=== PATIENT | female | born 1955 | race Caucasian/White ===

== ENCOUNTER 2016-07-16 09:58 | Observation (INO) | payer OTHER ==
[~2016-07-16] VITALS: Ht 165.1 cm; Wt 75.0 kg
[2016-07-16] VITALS (8 sets, daily range): BP systolic 102–127; BP diastolic 58–77; PULSE 68–86; RESP 16–24; TEMP 97.8–98.8; O2SAT 97–100
[~2016-07-16 09:58] MED LIST: LORTA5 PO
[2016-07-16] MEDS ORDERED: SODIUM CHLOR 0.9% 1000 ML INJ 1,000 ML IV SCH (10:17)
[2016-07-16] MEDS ORDERED: SODIUM CHLORIDE 0.9% FLUSH 10 ML FLUSH IV FLUSH PRN ×2 (10:30→17:45)
[2016-07-16 10:47] LABS: AUTOMATED NEUTROPHIL # 7.4 TH/MM3 (1.8-7.7); BASOPHIL # 0.1 TH/MM3 (0-0.2); BASOPHIL % 0.7 % (0.0-2.0); EOSINOPHIL % 0.4 % (0.0-4.0); HEMATOCRIT 43.3 % (35.0-46.0); HEMO FLAGS DIFF FINAL; LYMPH % 19.8 % (9.0-44.0); MEAN CELL VOLUME 87.4 FL (80.0-100.0); MEAN CORPUSCULAR HEMOGLOBIN 29.7 PG (27.0-34.0); MONO % 4.5 % (0.0-8.0); NEUT % 74.6 % (16.0-70.0); PLATELET COUNT 213 TH/MM3 (150-450); RED BLOOD COUNT 4.95 MIL/MM3 (4.00-5.30); RED CELL DISTRIBUTION WIDTH 13.1 % (11.6-17.2); WHITE BLOOD COUNT 9.9 TH/MM3 (4.0-11.0)
[2016-07-16 10:56] LABS: PROTHROMBIN TIME - PATIENT 11.6 SEC (9.8-11.6)
[2016-07-16 11:06] LABS: ANION GAP 6 MEQ/L (5-15); AST (GOT) 16 U/L (15-37); BICARBONATE 28.8 MEQ/L (21.0-32.0); BLOOD UREA NITROGEN 17 MG/DL (7-18); CHLORIDE 106 MEQ/L (98-107); GLOMERULAR FILTRATION RATE 62 ML/MIN (>89); POTASSIUM 4.5 MEQ/L (3.5-5.1); SODIUM (NA) 141 MEQ/L (136-145)
[2016-07-16 11:10] LABS: ALKALINE PHOSPHATASE 74 U/L (45-117); ALT (GPT) 25 U/L (10-53); TOTAL BILIRUBIN ADULT 0.5 MG/DL (0.2-1.0)
[2016-07-16] MEDS ORDERED: LORazepam 2 MG/ML VIAL IV PUSH ONE (11:15)
[2016-07-16] MEDS ORDERED: SODIUM CHLOR 0.9% 1000 ML INJ 1,000 ML IV ONE (11:15)
[2016-07-16] MEDS ORDERED: MECLIZINE HCL 25 MG TAB PO ONE (11:15)
[2016-07-16] MEDS ORDERED: ONDANSETRON HCL 4 MG/2 ML VIAL IV PUSH ONE (12:15)
--- NOTE | 2016-07-16 12:30 | RADRPT ---
EXAM DATE/TIME: 07/16/2016 12:02 [facility] COMPARISON: No previous studies available for comparison. INDICATIONS : Dizziness, nausea and vomiting. RADIATION DOSE: 56.77 CTDIvol (mGy) MEDICAL HISTORY : Cervical cancer. SURGICAL HISTORY : Tonsillectomy. ENCOUNTER: Initial ACUITY: 1 day PAIN SCALE: 0/10 LOCATION: cranial TECHNIQUE: Multiple contiguous axial images were obtained of the head. Using automated exposure control and adj ustment of the mA and/or kV according to patient size, radiation dose was kept as low as reasonably a chievable to obtain optimal diagnostic quality images. FINDINGS: CEREBRUM: The ventricles are normal for age. No evidence of midline shift, mass lesion, hemorrhage or acute in farction. No extra-axial fluid collections are seen. POSTERIOR FOSSA: The cerebellum and brainstem are intact. The 4th ventricle is midline. The cerebellopontine angle i s unremarkable. EXTRACRANIAL: The visualized portion of the orbits is intact. SKULL: The calvaria is intact. No evidence of skull fracture. CONCLUSION: Negative noncontrast head CT. Rolo Wells MD on July 16, 2016 at 12:28 Board Certified Radiologist. This report was verified electronically.
--- NOTE | 2016-07-16 14:05 | PD ---
HPI Chief Complaint: GI Complaint Time Seen by Provider: 10:58 Travel History International Travel<30 days: No Contact w/Intl Traveler<30days: No Traveled to known affect area: No History of Present Illness HPI Patient is a 60-year-old female with history of vertigo, presents to emergency room with complaints of dizziness. Reports that she has been having intermittent dizziness for the past few days, reports that she was able to ignore her symptoms. Patient reports that today, her dizziness got so severe, she is unable to ambulate, reports that she feels as if everything around her is spinning, reports that she cannot walk a straight line because of this dizziness. Patient reports that she feels sick her stomach, reports multiple episodes of nausea vomiting symptoms. Patient with no abdominal pain, no fevers or chills. Patient with no trauma to the head or neck. PFSH Past Medical History Cancer: Yes (CERVICAL. 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) Diminished Hearing: No Medical other: Yes (vertigo) Tetanus Vaccination: > 5 Years Influenza Vaccination: No Menopausal: Yes Past Surgical History Oral Surgery: Yes Tonsillectomy: Yes Other Surgery: Yes Social History Alcohol Use: No Tobacco Use: No Substance Use: No Allergies-Medications (Allergen,Severity, Reaction): Coded Allergies: Percodan (Verified Adverse Reaction, Mild, NAUSEA, TIRED, 07/16/16) Reported Meds & Prescriptions Reported Meds & Active Scripts Active No Active Prescriptions or Reported Medications Review of Systems General / Constitutional: No: Fever Eyes: No: Visual changes HENT: No: Headaches Cardiovascular: No: Chest Pain or Discomfort Respiratory: No: Shortness of Breath Gastrointestinal: No: Abdominal Pain Genitourinary: No: Dysuria Musculoskeletal: No: Pain Skin: No Rash Neurologic: Positive: Dizziness, Ataxia, No: Weakness Psychiatric: No: Depression Endocrine: No: Polydipsia Hematologic/Lymphatic: No: Easy Bruising Physical Exam Narrative GENERAL: Moderate distress SKIN: Focused skin assessment warm/dry. HEAD: Atraumatic. Normocephalic. EYES: Pupils equal and round. No scleral icterus. No injection or drainage. Patient with left-sided horizontal nystagmus ENT: No nasal bleeding or discharge. Mucous membranes pink and moist. NECK: Trachea midline. No JVD. CARDIOVASCULAR: Regular rate and rhythm. No murmur appreciated. RESPIRATORY: No accessory muscle use. Clear to auscultation. Breath sounds equal bilaterally. GASTROINTESTINAL: Abdomen soft, non-tender, nondistended. Hepatic and splenic margins not palpable. MUSCULOSKELETAL: No obvious deformities. No clubbing. No cyanosis. No edema. NEUROLOGICAL: Awake and alert. No obvious cranial nerve deficits. Motor grossly within normal limits. Normal speech. Patient with ataxic gait, and he was walking a straight line PSYCHIATRIC: Appropriate mood and affect; insight and judgment normal. Data Data Last Documented VS Vital Signs Date Time Temp Pulse Resp B/P Pulse Ox O2 Delivery O2 Flow Rate FiO2 07/16/16 12:00 98.0 86 18 114/67 99 Room Air Orders Complete Blood Count With Diff (07/16/16 10:17) Comprehensive Metabolic Panel (07/16/16 10:17) Lipase (07/16/16 10:17) Prothrombin Time / Inr (Pt) (07/16/16 10:17) Act Partial Throm Time (Ptt) (07/16/16 10:17) Urinalysis - C+S If Indicated (07/16/16 10:17) Iv Access Insert/Monitor (07/16/16 10:17) Ecg Monitoring (07/16/16 10:17) Oximetry (07/16/16 10:17) NPO (07/16/16 10:17) Sodium Chlor 0.9% 1000 Ml Inj (Ns 1000 M (07/16/16 10:17) Sodium Chloride 0.9% Flush (Ns Flush) (07/16/16 10:30) Electrocardiogram (07/16/16 10:17) Lorazepam Inj (Ativan Inj) (07/16/16 11:15) Meclizine (Antivert) (07/16/16 11:15) Sodium Chlor 0.9% 1000 Ml Inj (Ns 1000 M (07/16/16 11:15) Ct Brain W/O Iv Contrast(Rout) (07/16/16 ) Ondansetron Inj (Zofran Inj) (07/16/16 12:15) Mri Brain W/O Contrast (07/16/16 ) Labs Laboratory Tests Test 07/16/16 07/16/16 10:05 10:20 Sodium Level 141 MEQ/L Potassium Level 4.5 MEQ/L Chloride Level 106 MEQ/L Carbon Dioxide Level 28.8 MEQ/L Anion Gap 6 MEQ/L Blood Urea Nitrogen 17 MG/DL Creatinine 0.92 MG/DL Estimat Glomerular Filtration 62 ML/MIN Rate Random Glucose 104 MG/DL Calcium Level 9.0 MG/DL Total Bilirubin 0.5 MG/DL Aspartate Amino Transf 16 U/L (AST/SGOT) Alanine Aminotransferase 25 U/L (ALT/SGPT) Alkaline Phosphatase 74 U/L Total Protein 7.5 GM/DL Albumin 3.9 GM/DL Lipase 110 U/L White Blood Count 9.9 TH/MM3 Red Blood Count 4.95 MIL/MM3 Hemoglobin 14.7 GM/DL Hematocrit 43.3 % Mean Corpuscular Volume 87.4 FL Mean Corpuscular Hemoglobin 29.7 PG Mean Corpuscular Hemoglobin 34.0 % Concent Red Cell Distribution Width 13.1 % Platelet Count 213 TH/MM3 Mean Platelet Volume 8.0 FL Neutrophils (%) (Auto) 74.6 % Lymphocytes (%) (Auto) 19.8 % Monocytes (%) (Auto) 4.5 % Eosinophils (%) (Auto) 0.4 % Basophils (%) (Auto) 0.7 % Neutrophils # (Auto) 7.4 TH/MM3 Lymphocytes # (Auto) 2.0 TH/MM3 Monocytes # (Auto) 0.4 TH/MM3 Eosinophils # (Auto) 0.0 TH/MM3 Basophils # (Auto) 0.1 TH/MM3 CBC Comment DIFF FINAL Differential Comment Prothrombin Time 11.6 SEC Prothromb Time International 1.0 RATIO Ratio Activated Partial 26.0 SEC Thromboplast Time MDM Medical Decision Making Medical Screen Exam Complete: Yes Emergency Medical Condition: Yes Interpretation(s) EKG at 1035: Normal sinus rhythm at 71 bpm, QT/QTc 385/407, no acute ST or T- wave changes Vital Signs Date Time Temp Pulse Resp B/P Pulse Ox O2 Delivery O2 Flow Rate FiO2 07/16/16 12:00 98.0 86 18 114/67 99 Room Air 07/16/16 10:18 18 98 Room Air 07/16/16 10:17 16 07/16/16 10:00 86 24 127/77 99 Room Air Laboratory Tests Test 07/16/16 07/16/16 10:05 10:20 Sodium Level 141 MEQ/L (136-145) Potassium Level 4.5 MEQ/L (3.5-5.1) Chloride Level 106 MEQ/L (98-107) Carbon Dioxide Level 28.8 MEQ/L (21.0-32.0) Anion Gap 6 MEQ/L (5-15) Blood Urea Nitrogen 17 MG/DL (7-18) Creatinine 0.92 MG/DL (0.50-1.00) Estimat Glomerular Filtration 62 ML/MIN (>89) Rate Random Glucose 104 MG/DL (74-106) Calcium Level 9.0 MG/DL (8.5-10.1) Total Bilirubin 0.5 MG/DL (0.2-1.0) Aspartate Amino Transf 16 U/L (15-37) (AST/SGOT) Alanine Aminotransferase 25 U/L (10-53) (ALT/SGPT) Alkaline Phosphatase 74 U/L (45-117) Total Protein 7.5 GM/DL (6.4-8.2) Albumin 3.9 GM/DL (3.4-5.0) Lipase 110 U/L (73-393) White Blood Count 9.9 TH/MM3 (4.0-11.0) Red Blood Count 4.95 MIL/MM3 (4.00-5.30) Hemoglobin 14.7 GM/DL (11.6-15.3) Hematocrit 43.3 % (35.0-46.0) Mean Corpuscular Volume 87.4 FL (80.0-100.0) Mean Corpuscular Hemoglobin 29.7 PG (27.0-34.0) Mean Corpuscular Hemoglobin 34.0 % Concent (32.0-36.0) Red Cell Distribution Width 13.1 % (11.6-17.2) Platelet Count 213 TH/MM3 (150-450) Mean Platelet Volume 8.0 FL (7.0-11.0) Neutrophils (%) (Auto) 74.6 % (16.0-70.0) Lymphocytes (%) (Auto) 19.8 % (9.0-44.0) Monocytes (%) (Auto) 4.5 % (0.0-8.0) Eosinophils (%) (Auto) 0.4 % (0.0-4.0) Basophils (%) (Auto) 0.7 % (0.0-2.0) Neutrophils # (Auto) 7.4 TH/MM3 (1.8-7.7) Lymphocytes # (Auto) 2.0 TH/MM3 (1.0-4.8) Monocytes # (Auto) 0.4 TH/MM3 (0-0.9) Eosinophils # (Auto) 0.0 TH/MM3 (0-0.4) Basophils # (Auto) 0.1 TH/MM3 (0-0.2) CBC Comment DIFF FINAL Differential Comment Prothrombin Time 11.6 SEC (9.8-11.6) Prothromb Time International 1.0 RATIO Ratio Activated Partial 26.0 SEC Thromboplast Time (24.3-30.1) Last Impressions Head CT 07/16/16 0000 Signed Impressions: Service Date/Time: Saturday, July 16, 2016 12:02 - CONCLUSION: Negative noncontrast head CT. Rolo Wells MD Differential Diagnosis Vertigo, vertebrobasilar insufficiency, electrolyte abnormality Narrative Course Patient is a 60-year-old female who presents to emergency room with complaints of dizziness. Reports that she has been having intermittent dizziness for the past few days, reports that symptoms are worse today. Patient reports that she feels ataxic, patient unable to ambulate. Labs as well as CT of the head ordered. Patient was given IV fluids, antiemetics, antinausea medications, Antivert and Ativan for symptoms. Patient with no relief of symptoms after all these medications are administered. Patient was observed in the emergency room for 3 hours, I personally tried to ambulate patient, patient unable to ambulate in the emergency room at this time. Patient with unsteady gait, ataxic. MRI of the head brain ordered to rule out VBI. Plan to admit patient to the hospital as she is ataxic and continues to be symptomatic despite aggressive medical treatment CBC & BMP Diagram 07/16/16 10:05 07/16/16 10:[address] 07/16/16 0000 Signed Impressions: Service Date/Time: Saturday, July 16, 2016 12:02 - CONCLUSION: Negative noncontrast head CT. Rolo Wells MD Case reviewed with Dr. Barfield who accepts pt to service Diagnosis Primary Impression: Dizziness Additional Impression: Ataxia Admitting Information Admitting Physician Requests: Observation Scripts No Active Prescriptions or Reported Meds Mikki Carranza DO July 16, 2016 14:05
[2016-07-16] MEDS ORDERED: ONDANSETRON HCL 4 MG/2 ML VIAL IV PUSH PRN (15:15)
[2016-07-16] MEDS ORDERED: LORazepam 2 MG/ML VIAL IV PUSH PRN (15:15)
[2016-07-16] MEDS: SODIUM CHLOR 0.9% 1000 ML INJ 1,000 ML IV SCH (15:23)
--- NOTE | 2016-07-16 16:13 | HHI.PR ---
Objective Objective Results - Vital Signs Date Time Temp Pulse Resp B/P Pulse Ox O2 Delivery O2 Flow Rate FiO2 07/16/16 15:23 78 16 102/64 99 Room Air 07/16/16 14:00 98.0 83 16 112/66 99 Room Air 07/16/16 12:00 98.0 86 18 114/67 99 Room Air 07/16/16 10:18 18 98 Room Air 07/16/16 10:17 16 07/16/16 10:00 86 24 127/77 99 Room Air Result Diagram: 07/16/16 1020 07/16/16 1005 Other Results Laboratory Tests Test 07/16/16 07/16/16 10:05 10:20 Sodium Level 141 Potassium Level 4.5 Chloride Level 106 Carbon Dioxide Level 28.8 Anion Gap 6 Blood Urea Nitrogen 17 Creatinine 0.92 Estimat Glomerular Filtration 62 Rate Random Glucose 104 Calcium Level 9.0 Total Bilirubin 0.5 Aspartate Amino Transf 16 (AST/SGOT) Alanine Aminotransferase 25 (ALT/SGPT) Alkaline Phosphatase 74 Total Protein 7.5 Albumin 3.9 Lipase 110 White Blood Count 9.9 Red Blood Count 4.95 Hemoglobin 14.7 Hematocrit 43.3 Mean Corpuscular Volume 87.4 Mean Corpuscular Hemoglobin 29.7 Mean Corpuscular Hemoglobin 34.0 Concent Red Cell Distribution Width 13.1 Platelet Count 213 Mean Platelet Volume 8.0 Neutrophils (%) (Auto) 74.6 Lymphocytes (%) (Auto) 19.8 Monocytes (%) (Auto) 4.5 Eosinophils (%) (Auto) 0.4 Basophils (%) (Auto) 0.7 Neutrophils # (Auto) 7.4 Lymphocytes # (Auto) 2.0 Monocytes # (Auto) 0.4 Eosinophils # (Auto) 0.0 Basophils # (Auto) 0.1 CBC Comment DIFF FINAL Differential Comment Prothrombin Time 11.6 Prothromb Time International 1.0 Ratio Activated Partial 26.0 Thromboplast Time Physical Exam Physical Exam pt is seen & examined d/w PT d/w Lakia see orders see H&P will f/u Delaney Hendricks MD July 16, 2016 16:13
--- NOTE | 2016-07-16 16:20 | RADRPT ---
EXAM DATE/TIME: 07/16/2016 15:35 [facility] COMPARISON: No previous studies available for comparison. INDICATIONS : Vertigo. Unsteady gait. MEDICAL HISTORY : Hypercholesterolemia. SURGICAL HISTORY : Breast biopsy. Appendectomy. ENCOUNTER: Initial ACUITY: 1 day PAIN SCORE: 0/10 LOCATION: cranial TECHNIQUE: Multiplanar, multisequence MRI of the brain was performed without contrast. FINDINGS: CEREBRUM: The ventricles are normal for age. No evidence of midline shift, mass lesion, hemorrhage or acute in farction. No extraaxial fluid collections are seen. The pituitary gland and suprasellar cistern are normal in configuration. WHITE MATTER: No significant signal abnormalities are seen in the white matter. POSTERIOR FOSSA: The cerebellum and brainstem are intact. The 4th ventricle is midline. The cerebellopontine angle is unremarkable. The cerebellar tonsils are normal in position. DIFFUSION IMAGING: No focal areas of restricted diffusion are seen. No evidence of acute infarction. EXTRACRANIAL: The visualized portions of the orbits and paranasal sinuses are unremarkable. CONCLUSION: Normal examination for a patient of this age. Tim Gamez MD on July 16, 2016 at 16:15 Board Certified Radiologist. This report was verified electronically.
--- NOTE | 2016-07-16 16:22 | HHI.PR ---
Objective Objective Results - Vital Signs Date Time Temp Pulse Resp B/P Pulse Ox O2 Delivery O2 Flow Rate FiO2 07/16/16 15:23 78 16 102/64 99 Room Air 07/16/16 14:00 98.0 83 16 112/66 99 Room Air 07/16/16 12:00 98.0 86 18 114/67 99 Room Air 07/16/16 10:18 18 98 Room Air 07/16/16 10:17 16 07/16/16 10:00 86 24 127/77 99 Room Air Result Diagram: 07/16/16 1020 07/16/16 1005 Physical Exam Physical Exam PHYSICAL EXAMINATION GENERAL: This is a well-developed, well-nourished female who appears to be in no acute distress. She is alert and awake, []. HEAD: Normocephalic without any lesion or mass noted. Facial features appear symmetric. OROPHARYNGEAL: Oropharynx without erythema or edema. NECK: Supple. No nuchal rigidity or lymphadenopathy. Trachea midline without deviation. CARDIAC: Regular rhythm, regular rate, S1 and S2 are heard. Murmur []; no gallops or rubs. LUNGS: Clear to auscultation bilaterally. [] wheeze, [] rhonchi or [] rale. No use of accessory muscles on inspiration or expiration. ABDOMEN: Soft, nontender, no organomegaly or masses. Bowel sounds are heard in all four quadrants. No rebound. No guarding. EXTREMITIES: [] edema. Pulses equal bilateral. [] cyanosis. NEUROLOGICAL: Patient mood and affect appropriate. No focal deficit SKIN:Warm and moist A/P Assessment and Plan dictated, [id number] Lakia Cedeño July 16, 2016 16:22
[2016-07-16] MEDS ORDERED: ACETAMINOPHEN 325 MG TAB PO PRN (17:45)
[2016-07-16] MEDS ORDERED: NALOXONE HCL 0.4 MG/ML AMP IV PRN (17:45)
[2016-07-16] MEDS ORDERED: SENNOSIDES 8.6 MG TAB PO PRN (17:45)
[2016-07-16] MEDS: ONDANSETRON HCL 4 MG/2 ML VIAL IVP PRN (18:00)
[2016-07-16] MEDS: MECLIZINE HCL 25 MG TAB PO SCH ×2 (18:01→23:35)
[2016-07-16] MEDS: HEPARIN SODIUM - SQ 10,000 UNITS/ML VIAL SQ SCH (18:10)
[2016-07-16 18:48] LABS: BLOOD, URINE NEG (NEG); COMMENT (UR) CULT NOT INDICATED; CULTURE IF INDICATED CULT NOT INDICATED; GLUCOSE,URINE NEG (NEG); KETONE, URINE 40 mg/dL (NEG); MUCUS URINE MOD /lpf (OCC); NITRITE,URINE NEG (NEG); PH, URINE 5.5 (5.0-8.5); SQUAMOUS EPITHELIAL CELL URINE 3 /hpf (0-5); URINE COLOR YELLOW (YELLW/STRAW)
[2016-07-16] MEDS: FAMOTIDINE 20 MG TAB PO SCH (21:27)
--- NOTE | 2016-07-16 21:53 | EKG ---
Date Performed: 07/16/2016 Time Performed: 10:35:16 PTAGE: 60 years EKG: Sinus rhythm NORMAL ECG PREVIOUS TRACING : 10/25/2011 17.26 DOCTOR: Sandy Dennis Interpretating Date/Time 07/16/2016 21:49:20
[2016-07-16] MEDS: SODIUM CHLORIDE 0.9% FLUSH 10 ML FLUSH IV FLUSH SCH (23:35)
[2016-07-17 04:03] VITALS: BP 107/57; PULSE 72; RESP 19; TEMP 98; O2SAT 98
[2016-07-17] MEDS: ONDANSETRON HCL 4 MG/2 ML VIAL IVP PRN (05:56)
[2016-07-17] MEDS: MECLIZINE HCL 25 MG TAB PO SCH ×4 (05:56→23:45)
[2016-07-17] MEDS: SODIUM CHLOR 0.9% 1000 ML INJ 1,000 ML IV SCH ×2 (05:57→15:20)
[2016-07-17] MEDS: HEPARIN SODIUM - SQ 10,000 UNITS/ML VIAL SQ SCH ×2 (05:57→18:35)
--- NOTE | 2016-07-17 07:50 | HHI.PR ---
Subjective Remarks lying flat in bed, dizziness continues nausea / dry heaves with position change awke, responsive afebrile (Lakia Cedeño) Objective Objective Results - Vital Signs Date Time Temp Pulse Resp B/P Pulse Ox O2 Delivery O2 Flow Rate FiO2 07/17/16 04:03 98.0 72 19 107/57 98 07/16/16 23:25 98.8 68 19 109/58 97 07/16/16 19:34 71 18 108/67 100 Room Air 07/16/16 17:31 97.8 76 16 118/72 99 Room Air 07/16/16 15:23 78 16 102/64 99 Room Air 07/16/16 14:00 98.0 83 16 112/66 99 Room Air 07/16/16 12:00 98.0 86 18 114/67 99 Room Air 07/16/16 10:18 18 98 Room Air 07/16/16 10:17 16 07/16/16 10:00 86 24 127/77 99 Room Air I/O 07/16/16 07/16/16 07/16/16 07/17/16 07/17/16 07/17/16 06:59 14:59 22:59 06:59 14:59 22:59 Intake Total 180 ml Balance 180 ml Intake Oral 180 ml # Voids 1 # Bowel Movements 0 (Lakia Cedeño) Result Diagram: 07/16/16 1020 07/16/16 1005 ROS General: Weakness (generalized due to dizziness), Other (10 point ROS done positives noted are continuous dizziness with some nausea and dry heaves systems negative are unremarkable) GI: N/V (Lakia Cedeño) Physical Exam Physical Exam PHYSICAL EXAMINATION GENERAL: This is a well-developed, well-nourished female who appears to be continuing to be dizzy She is awake and responds to verbal stimuli HEAD: Normocephalic without any lesion or mass noted. Facial features appear symmetric. OROPHARYNGEAL: Oropharynx without erythema or edema. NECK: Supple. No nuchal rigidity or lymphadenopathy. Trachea midline without deviation. CARDIAC: Regular rhythm, regular rate, S1 and S2 are heard. Murmur none no gallops or rubs. LUNGS: Clear to auscultation bilaterally. No wheezes rales or rhonchi, normal volumes ABDOMEN: Soft, nontender, no organomegaly or masses. Bowel sounds are heard in all four quadrants. No rebound. No guarding. EXTREMITIES: no edema. Pulses equal bilateral. NEUROLOGICAL: Patient mood and affect appropriate. Still having positional dizziness SKIN:Warm and moist Objective Remarks I'm still very dizzy and get nauseated. Unable to eat (Lakia Cedeño) A/P Assessment and Plan Dizziness/vertigo Ataxia Nausea/dry heaves, secondary to #1 Vital signs reviewed, no fever pulse respiratory rate and blood pressure all within normal range TSH normal UTI shows large amount of leukocyte esterase, and urine ketones, but patient has been on a intensive workout program since March and has been attempting to lose weight. No culture is pending MRI negative CT negative Patient's symptoms of vertigo continue, and patient feels she's unable to eat due to 2 nausea was changing her position in bed Discussed Lupe exercises for vertigo with patient and suggested that she try these. Will review further findings with Dr. Hendricks, patient seen on his behalf Discussed with nurse Discussed with patient and her daughter. Discharge planning possible today this will be dependent on any other hospital course needed. Currently patient continues on IV fluids for hydration Plan was for patient to work with PT with Eply maneuver, and discharge after 2 PM. Patient informs staff that she does not feel like she's able to leave, she currently is very nauseated with positional vertigo. She she has taken minimal sips of by mouth fluids, IV fluids still infusing. Patient feels as if she will have to return to hospital if she doesn't get to feel better. Will hold discharge and reevaluate patient in the morning. Discussed with Dr. Hendricks, Discharge Planning Home (Lakia Cedeño) Assessment and Plan pt is seen & examined still very symptomatic will obtain PT eval /Lupe's maneuver?? cont symptomatic care / rest will give 1 dose Rocephin possible d/c home later today d/w pt & her friend at bedside see Orders f/u pcp, if symptoms persist , may consider out pt vestibular rehab (Delaney Hendricks MD) Lakia Cedeño July 17, 2016 07:50 Delaney Hendricks MD July 17, 2016 10:09
[2016-07-17] MEDS: FAMOTIDINE 20 MG TAB PO SCH ×2 (08:48→20:20)
[2016-07-17] MEDS: SODIUM CHLORIDE 0.9% FLUSH 10 ML FLUSH IV FLUSH SCH ×2 (09:00→21:00)
[2016-07-17] MEDS ORDERED: ALPR.25 PO (10:11)
[2016-07-17] MEDS ORDERED: PROM1SUP7 RECTAL (10:11)
[2016-07-17] MEDS ORDERED: MECL-62 PO (10:11)
[2016-07-17] MEDS ORDERED: cefTRIAXone INJ 1,000 MG in SODIUM CHLORIDE 0.9% INJ 100 ML IV ONE (10:15)
[2016-07-17 11:45] VITALS: BP 112/68; PULSE 77; RESP 18; TEMP 97.8; O2SAT 97
--- NOTE | 2016-07-17 14:19 | HHI.DS ---
Discharge Summary Admission Date July 16, 2016 at 14:13 Discharge Date: July 17, 2016 Admitting Diagnosis Intractable dizzyness CBC/BMP: 07/16/16 1020 07/16/16 1005 Significant Findings Laboratory Tests Test 07/16/16 07/16/16 07/16/16 10:05 10:20 18:00 Estimat Glomerular Filtration 62 ML/MIN (>89) Rate Neutrophils (%) (Auto) 74.6 % (16.0-70.0) Urine Turbidity HAZY (CLEAR) Urine Ketones 40 mg/dL (NEG) Urine Leukocyte Esterase LARGE (NEG) Urine RBC 4 /hpf (0-3) Urine WBC 7 /hpf (0-5) Urine Mucus MOD /lpf (OCC) Imaging Last Impressions Head CT 07/16/16 0000 Signed Impressions: Service Date/Time: Saturday, July 16, 2016 12:02 - CONCLUSION: Negative noncontrast head CT. Rolo Wells MD Brain MRI 07/16/16 0000 Signed Impressions: Service Date/Time: Saturday, July 16, 2016 15:35 - CONCLUSION: Normal examination for a patient of this age. Tim Gamez MD Pt Condition on Discharge: Fair Discharge Disposition: Discharge Home Discharge Instructions DIET: Follow Instructions for: As Tolerated, No Restrictions Fluid Restrictions: none Activities you can perform: Weight Bearing as Ced Other Activity Instructions: fall precautions Follow up Referrals: PCP Follow-up - 1 Week New Medications: Alprazolam (Xanax) 0.25 Mg Tab 0.25 MG PO Q8H PRN ANXIETY #15 Ref 0 TAB Promethazine Supp (Phenergan Supp) 25 Mg Supp 25 MG RECTAL Q6H PRN NAUSEA OR VOMITING #12 Ref 0 SUPP Meclizine (Meclizine) 25 Mg Tab 25 MG PO Q6HR Vertigo #20 TAB Lakia Cedeño July 17, 2016 14:19
--- NOTE | 2016-07-17 14:27 | HHI.DS ---
Discharge Summary Admission Date July 16, 2016 at 14:13 Admitting Diagnosis Intractable dizzyness Brief History Patient came to ER for uncontrolled dizziness/vertigo. Started last pm, with nausea and vomiting with positional changes. Patient was struggling with ambulation. Admitted for evaluation and to rule out any acute illness. Symptoms of vertigo is new onset, constant since hospital admission CBC/BMP: 07/16/16 1020 07/16/16 1005 Significant Findings Laboratory Tests Test 07/16/16 07/16/16 07/16/16 10:05 10:20 18:00 Estimat Glomerular Filtration 62 ML/MIN (>89) Rate Neutrophils (%) (Auto) 74.6 % (16.0-70.0) Urine Turbidity HAZY (CLEAR) Urine Ketones 40 mg/dL (NEG) Urine Leukocyte Esterase LARGE (NEG) Urine RBC 4 /hpf (0-3) Urine WBC 7 /hpf (0-5) Urine Mucus MOD /lpf (OCC) Imaging Last Impressions Head CT 07/16/16 0000 Signed Impressions: Service Date/Time: Saturday, July 16, 2016 12:02 - CONCLUSION: Negative noncontrast head CT. Rolo Wells MD Brain MRI 07/16/16 0000 Signed Impressions: Service Date/Time: Saturday, July 16, 2016 15:35 - CONCLUSION: Normal examination for a patient of this age. Tim Gamez MD Hospital Course Patient has had her vital signs and neuro checks monitored throughout hospital stay. CT of head and MRI are negative. Vertigo has continued throughout day, . Patient was seen per physical therapy for Lupe positional maneuvers to assist in resolving her vertigo Explained process and signs and symptoms per Dr. mohr and GUCCI. Patient will discharge to follow up with her PCP, activities as tolerated, no driving, Antivert for medical management Patient remained afebrile, normal pulse and BP trends during her short stay visit. Pt Condition on Discharge: Fair Discharge Disposition: Discharge Home Discharge Instructions DIET: Follow Instructions for: As Tolerated, No Restrictions Fluid Restrictions: none Activities you can perform: Weight Bearing as Ced Other Activity Instructions: fall precautions Lakia Cedeño July 17, 2016 14:27
[2016-07-17] MEDS ORDERED: PROMETHAZINE HCL 25 MG SUPP RECTAL ONE (14:30)
[2016-07-17] MEDS ORDERED: PILL SPLITTER OTHER PRN (15:45)
[2016-07-17 17:08] VITALS: BP 131/66; PULSE 87; RESP 21; TEMP 97.8; O2SAT 98
[2016-07-17 20:00] VITALS: BP 137/65; PULSE 94; RESP 20; TEMP 96.6; O2SAT 97
[2016-07-17] MEDS: PROMETHAZINE HCL 25 MG TAB PO PRN (20:20)
[2016-07-18 00:11] VITALS: BP 107/63; PULSE 68; RESP 20; TEMP 97.2; O2SAT 96
[2016-07-18 04:00] VITALS: BP 126/70; PULSE 78; RESP 20; TEMP 98; O2SAT 97
[2016-07-18] MEDS: MECLIZINE HCL 25 MG TAB PO SCH ×2 (05:31→12:38)
[2016-07-18] MEDS: SODIUM CHLOR 0.9% 1000 ML INJ 1,000 ML IV SCH (05:33)
[2016-07-18] MEDS: PROMETHAZINE HCL 25 MG TAB PO PRN ×2 (05:33→09:41)
[2016-07-18] MEDS: HEPARIN SODIUM - SQ 10,000 UNITS/ML VIAL SQ SCH (05:37)
--- NOTE | 2016-07-18 08:12 | HHI.PR ---
Subjective Remarks lying flat in bed, dizziness persists, but easing some. nauseapersists, but improving. slept well last night afebrile (Lakia Cedeño) Objective Objective Results - Vital Signs Date Time Temp Pulse Resp B/P Pulse Ox O2 Delivery O2 Flow Rate FiO2 07/18/16 04:00 98.0 78 20 126/70 97 07/18/16 00:11 97.2 68 20 107/63 96 07/17/16 20:00 96.6 94 20 137/65 97 07/17/16 17:08 97.8 87 21 131/66 98 07/17/16 11:45 97.8 77 18 112/68 97 I/O 07/17/16 07/17/16 07/17/16 07/18/16 07/18/16 07/18/16 07:00 15:00 23:00 07:00 15:00 23:00 Intake Total 650 ml Balance 650 ml IV Total 650 ml # Voids 3 # Bowel Movements 0 (Lakia Cedeño) Result Diagram: 07/16/16 1020 07/16/16 1005 Medications and IVs Administered Medications Medications (Trade) Dose Ordered Sig/Josie Route PRN Reason Start Time Stop Time Status Last Admin Dose Admin Sodium Chloride (NS 1000 ml Inj) 1,000 ml @ 84 mls/hr [id number] IV 07/16/16 15:30 07/18/16 05:33 Meclizine HCl (Antivert) 25 mg Q6HR PO 07/16/16 18:00 07/18/16 05:31 Sodium Chloride (NS Flush) 2 ml BID IV FLUSH 07/16/16 21:00 07/16/16 23:35 Ondansetron HCl (Zofran Inj) 4 mg Q6H PRN IVP NAUSEA OR VOMITING 07/16/16 17:45 07/17/16 05:56 Heparin Sodium (Porcine) (Heparin Inj) 5,000 units Q12H SQ 07/16/16 18:00 07/17/16 18:35 Famotidine (Pepcid) 20 mg BID PO 07/16/16 21:00 07/17/16 20:20 Promethazine HCl (Phenergan) 12.5 mg Q4H PRN PO NAUSEA OR VOMITING 07/17/16 15:30 5/8/17 05:33 (Lakia Cedeño) ROS General: Other (dizziness, 10 point ROS done, positives noted, otherwise unremarkable) GI: N/V (with vertigo) Neuro/MS: Lightheaded (vertigo ) (Lakia Cedeño) Physical Exam Physical Exam PHYSICAL EXAMINATION GENERAL: This is a well-developed, well-nourished female who appears to be in no acute distress. She is alert and awake, []. HEAD: Normocephalic without any lesion or mass noted. Facial features appear symmetric. OROPHARYNGEAL: Oropharynx without erythema or edema. NECK: Supple. No nuchal rigidity or lymphadenopathy. Trachea midline without deviation. CARDIAC: Regular rhythm, regular rate, S1 and S2 are heard. LUNGS: Clear to auscultation bilaterally. ABDOMEN: Soft, nontender, Bowel sounds are present No rebound. No guarding. EXTREMITIES: no edema. Pulses equal bilateral. NEUROLOGICAL: Patient mood and affect appropriate. No focal deficit SKIN:Warm and moist Objective Remarks Im alittle better this am I think. Was able to eat small amount last night. ( Lakia Cedeño) A/P Assessment and Plan Dizziness/vertigo Ataxia Nausea/dry heaves, secondary to #1 Vital signs reviewed, no fever pulse respiratory rate and blood pressure all within normal range TSH checked on adm. normal range UTI shows large amount of leukocyte esterase, and urine ketones, but patient has been on a intensive workout program since March and has been attempting to lose weight. MRI negative CT negative Physical therapy came on Monday to assist with exercizes for vertigo, but patient unable to do them. Nausea and vomited immediately Discussed Lupe exercises for vertigo with patient and suggested that she try these. PT coming back this am. to reattempt. D/W Dr. Stewart, patient seen on his behalf Discussed with nurse Discussed with patient Discharge planning probable today this will be dependent on any other hospital course needed. IVF continue, diet changed to regular, but patient is choosing what she can tolerate. Discharge Planning Home (Lakia Cedeño) Assessment and Plan pt seen and examined as above labs and meds reviewed previous notes reviewed plan of care [place] paredesp dw rn dw pt in detail (Kuldeep Stewart MD) Lakia Cedeño July 18, 2016 08:12 Kuldeep Stewart MD July 18, 2016 13:32
[2016-07-18 08:28] VITALS: BP 116/68; PULSE 60; RESP 18; TEMP 99.4; O2SAT 98
--- NOTE | 2016-07-18 08:34 | MH ---
cc: SORIN[facility] DATE OF ADMISSION: 07/16/2016 CHIEF COMPLAINT: Dizziness with nausea and vomiting. TRAVEL IN THE LAST THIRTY DAYS: None. HISTORY OF PRESENT ILLNESS: This is a very pleasant 60-year-old white female who had been in her usual state of health up until this past evening when she noted that she had an acute onset of vertigo in which she felt like that the room was swaying. She stated that she could not walk in a straight line and had extreme nausea and vomiting associated with the symptoms. She did note a history of dizzy spells approximately a year and a half ago with some neck and shoulder discomfort. The patient states that she did not have symptoms of nausea or vomiting during that time and was seen per a chiropractor for approximately six months. She states that her vertigo or her dizziness and her pain subsided up until last night. the patient denies any chest pain. No shortness of breath. Denies any headaches. Has had no recent weight gain or weight loss even though she has been working out regularly at least four days a week and dieting since March or April. She denies any acute weight gain or weight loss during this time. The patient also notes some recent temperature changes to the point that she will awaken with diaphoresis and sweats and then on the other hand with sweats. On the other hand, she may arouse with extreme cold and chills to the point that she feels like she cannot get warm enough. The patient has never had any history of thyroid problems. Denies any seasonal allergies but does note that she has had a left eardrum to rupture two different times. PAST MEDICAL HISTORY: 1. Basal carcinoma removed from the right shoulder many years ago. 2. History of vertigo with different symptoms. 3. Postmenopausal. PAST SURGICAL HISTORY: 1. Oral surgery. 2. Tonsillectomy. ALLERGIES: 1. PERCODAN. ACTIVE MEDICATIONS TAKEN DAILY: None. SOCIAL HISTORY: The patient is . She currently lives in her own home with one son. She denies any tobacco use in her life. A rare social alcohol drink and no more than three times a year around the holidays. No substance abuse. FAMILY HISTORY: Cancer on her mother's and her father's side of family. REVIEW OF SYSTEMS: A twelve point review was done and positive noted in the history of present illness, which include her vertigo with the room spinning, symptoms associated with nausea and vomiting. The patient denies any diarrhea. No constipation. No recent fevers. No recent antibiotic usage. She has been working out and attempting to diet since March or April with no weight loss. Other systems negative or unremarkable. PHYSICAL EXAMINATION: VITAL SIGNS: Temperature is 98, pulse 83, respirations 16, blood pressure 112/66 and 102/64, O2 sat 99 on room air. GENERAL: Well-nourished slim white female looks to be younger than her stated age resting on a stretcher. She is alert and oriented and A good historian. SKIN: Skin is pink, warm and dry. No rashes. No ecchymosis. HEAD, EYES, EARS, NOSE, THROAT: Normocephalic and atraumatic. Pupils equal, round and reactive to light and accommodation. Mucous membranes are pink and moist. Tongue is midline. NECK: Neck is supple. CARDIOVASCULAR: S1-S2 regular rate and rhythm. No murmur, rub or gallop appreciated. She has no edema in her lower extremities or her trunk and her pulses are intact. PULMONARY: Essentially clear anteriorly and posteriorly with no wheezes, rales or rhonchi. ABDOMEN: Abdomen is flat, soft, nontender, nondistended. Active bowel sounds in all four quadrants. MUSCULOSKELETAL: She moves all extremities with purpose. She has equal hand zinc plate grainer. She can overcome resistance. NEUROLOGIC: She is alert, oriented and a good historian. She does not complain of any dizziness while lying flat but sat up very slow due to some positional vertigo changes. PSYCHIATRIC: Appropriate mood and affect. Insight and judgment is normal. DIAGNOSTIC DATA: WBC count 9.9, RBC 4.95, hemoglobin 14.7, hematocrit 43.3, platelet count 213,000, neutrophil percentage auto count 74.6. All other differential is normal. Chemistry: Sodium 141, potassium 4.5, chloride 106, carbon dioxide 28.8, anion gap 6, BUN 17, creatinine 1.11, 0.92, GFR 62, random glucose 104, calcium 9, bilirubin 0.5, albumin 3.9, lipase 110, AST 16, ALT 25, alkaline phosphatase 74. PT / INR is 1. IMAGING STUDIES: CT scan is a negative noncontrast head CT. MRI is pending. ASSESSMENT AND PLAN: 1. Dizziness/ vertigo. 2. Ataxia. 3. Possible thyroid dysfunction. PLAN: 1. Our plan is to initially admit for observation. 2. The patient will be placed on a heart-healthy diet. 3. Gentle hydration with IV fluids. 4. Will start her on some Antivert 25 milligrams p.o. q. 6 and check for effectiveness. 5. The patient can have IV Ativan q.8 PRN as warranted for any anxiety or dizzy spells. 6. MRI is pending. 7. Will monitor ECG for any dysrhythmias, although I doubt any acute issues. 8. Pulse oximetry and 02 if needed PRN. 9. Depending on any additional findings, will depend on her course of treatment. 10. If the patient's symptoms improve with the Antivert and workup is negative, she will probably be discharged in the morning to follow up with her primary care physician. The patient is a full code. Full aggressive care. She has children who are very concerned and interested at her bedside and we will keep them informed. Dictated by GUCCI Quinonez. MD KALIN Ramos/NASIM /4:14 PM /8:32 AM
[2016-07-18] MEDS: SODIUM CHLORIDE 0.9% FLUSH 10 ML FLUSH IV FLUSH SCH (09:00)
[2016-07-18] MEDS: FAMOTIDINE 20 MG TAB PO SCH (09:41)
[2016-07-18 11:49] VITALS: BP 113/70; PULSE 62; RESP 23; TEMP 98.6; O2SAT 97
== END 2016-07-18 16:16 | disposition home or self-care (01) ==
LOC: NEPE 09:58 → NEDA 14:13 → NEPGCP 19:45
PROVIDERS: ADMIT Specialist; ATTEND Specialist
DX: R42 Dizziness and giddiness (principal); Z85.828 Personal history of other malignant neoplasm of skin; Z88.8 Allergy status to other drugs, medicaments and biological substances
CPT/HCPCS: 70450; 70551; 80053; 81001; 83690; 84443; 85025; 85610; 85730; 93005; 96361; 96374; 96375; 97112; 97163; 99285; G0378; G8987; G8988; J0696; J1644; J2060; J2405; J7030; Q0169